=== PATIENT | male | born 1960 | race African-American/Black ===

== ENCOUNTER 2019-08-09 11:20 | Emergency (ER) | payer MEDICARE, MEDICAID ==
[~2019-08-09] VITALS: Ht 175.3 cm; Wt 80.0 kg
[2019-08-09 12:54] VITALS: BP 135/80
== END 2019-08-09 12:55 | disposition home or self-care (01) ==
LOC: ER 11:59
DX: M62.838 Other muscle spasm (principal); M79.621 Pain in right upper arm; M47.892 Other spondylosis, cervical region; M19.90 Unspecified osteoarthritis, unspecified site
CPT/HCPCS: 99283